=== PATIENT | male | born 1940 | race Caucasian/White ===

== ENCOUNTER → 2017-09-02 | Outpatient (CLI) | payer OTHER ==
--- NOTE | 2017-09-02 14:40 | MR ---
MRCP HISTORY: Elevated liver enzymes Multiplanar multisequence imaging obtained through the biliary system. Three-dimensional reconstructi ons were performed. Liver shows signal drop on out of phase imaging suggestive of hepatic steatosis, there is motion on t he exam. Some dependent high attenuation is present within the gallbladder compatible with small stones. Diffi cult to exclude stone within the distal common bile duct, axial image 16 of the T2 weighted data set, although this may be artifactual. The kidneys and adrenal glands are unremarkable, the spleen is enl arged. Pancreas shows no definite mass. IMPRESSION: There may be underlying artifact. There is motion during the exam which limits evaluation , difficult to exclude choledocholithiasis, there is cholelithiasis. Hepatic steatosis, hepatosplenom egaly.
== END | disposition home or self-care (01) ==
LOC: RADMRIMAIN 12:49
PROVIDERS: ATTEND Internal Medicine Gastroenterology
DX: K76.0 Fatty (change of) liver, not elsewhere classified (principal); R16.2 Hepatomegaly with splenomegaly, not elsewhere classified
CPT/HCPCS: 74181

== ENCOUNTER → 2021-01-10 | Outpatient (CLI) | payer OTHER ==
--- NOTE | 2021-01-10 12:07 | CT ---
EXAMINATION TYPE: CT brain wo con DATE OF EXAM: 01/10/2021 COMPARISON: None HISTORY: 80-year-old male Z84.9, Family history of brain tumor, G20 Parkinson's disease, memory loss TECHNIQUE: Examination was done in axial plane without intravenous contrast. Coronal and sagittal r econstructions performed. CT DLP: 1036 mGycm Automated exposure control for dose reduction was used. FINDINGS: There is no evidence of acute intracranial hemorrhage, acute ischemic changes, mass, mass-effect, or extra-axial fluid collection. There is no effacement of cerebral sulci or basal subarachnoid cister ns. There is no midline shift. Manuel-white matter distinction is preserved. Partially empty sella. Mild to moderate cerebral cortical and central cerebral atrophy. Secondary mild prominence to the ve ntricular system. Mild patchy white matter hypodensities in posterior hemispheres. More focal 1 cm hypodensity left tem poral lobe adjacent to the temporal horn of the left lateral ventricle. Trace mucosal thickening ethmoid air cells. Mastoid air cells well pneumatized. Orbits and globes degar ear intact. IMPRESSION: 1. Mild to moderate cortical and central cerebral atrophy. 2. Mild burden of chronic small vessel ischemic disease but with a more focal 1 cm low density focus left temporal lobe. This may also represent a focus of chronic white matter ischemia. MRI without and with contrast recommended to further evaluate. 3. Otherwise, no acute intracranial abnormality seen.
== END | disposition home or self-care (01) ==
LOC: RADCTMAIN 11:16
PROVIDERS: ATTEND Family Medicine
DX: G20 Parkinson's disease (principal); I67.82 Cerebral ischemia; G31.9 Degenerative disease of nervous system, unspecified; Z82.0 Family history of epilepsy and other diseases of the nervous system
CPT/HCPCS: 70450

== ENCOUNTER 2022-01-22 09:06 | Day surgery (SDC) | payer OTHER ==
[2022-01-19 08:31] VITALS: BMI 27.3
[~2022-01-22 09:06] MED LIST: DEXAMETHASONE SOD PHOSPHATE 4 MG/ML 1 ML VIAL IV ONE; GENTAMICIN 120 MG in SODIUM CHLORIDE 0.9% 100 ML IVPB PRN; HYDROmorphone 0.5 MG/0.5 ML SYRINGE IVP PRN; LACTATED RINGERS 1,000 ML IV SCH; MIDAZOLAM 2 MG/2 ML VIAL IV PRN; ONDANSETRON 4 MG/2 ML VIAL IVP ONE
--- NOTE | 2022-01-22 09:31 | P.HPIHPCON ---
History of Present Illness H&P Date: 01/22/22 Chief Complaint: Urinary retention, BPH This is an 81-year-old male with history of urinary retention currently Eden catheter dependent. He has failed his trial of void. He underwent a cystoscopy with urodynamic which showed normal bladder tone, and on cystoscopy evidence of an obstructive prostate. Option of TURP, eden catheter and CIC was discussed with him. He agreed to proceed with a TURP. Discussed the risk which includes but not limited to bleeding, infection, urinary incontinence, strictures, persistent retention. I discussed also with him risk from anesthesia. He understood all the risk and agreed to proceed Consent for Procedure: I have explained the operation/procedure to the patient, including the risks, benefits, side effects, alternative therapies (including not receiving the proposed treatment or service), the likelihood of the patient achieving his/her goals, and potential recuperation problems for the procedure/sedation/analgesia, as well as any blood products, if indicated. I also explained to the patient the risks, benefits and side effects of the alternatives, as well as the risks related to not receiving the proposed procedure, care, treatment, or services. Past Medical History Past Medical History: Cancer, Diabetes Mellitus, GERD/Reflux, Hyperlipidemia, Hypertension, Myocardial Infarction ([place]), Osteoarthritis (OA), Prostate Disorder, Renal Disease, Thyroid Disorder Additional Past Medical History / Comment(s): HX OF POLYP, diverticulitis, hx gout, skin cancer left ear, parkinsons, left leg pain-dr told from sciatica Last Myocardial Infarction Date:: 2004 History of Any Multi-Drug Resistant Organisms: None Reported Past Surgical History: Cholecystectomy, Heart Catheterization With Stent, Hernia Repair, Orthopedic Surgery, Tonsillectomy Additional Past Surgical History / Comment(s): ARTHROSCOPY ADILENE KNEES, one c ardiac stent Past Anesthesia/Blood Transfusion Reactions: No Reported Reaction Date of Last Stent Placement:: 2004 Smoking Status: Never smoker - Past Family History Brother(s) Family Medical History: Cancer Sister(s) Family Medical History: Cancer Medications and Allergies Home Medications Medication Instructions Recorded Confirmed Type Aspirin 81 mg PO DAILY 01/07/14 01/19/22 History HYDROcodone/APAP 7.5-325MG [[place] 1 tab PO Q6HR PRN 01/07/14 01/19/22 History 7.5-325] Metoprolol Tartrate [Lopressor] 50 mg PO QAM 01/07/14 01/19/22 History Rosuvastatin Calcium [Crestor] 5 mg PO QAM 01/07/14 01/19/22 History Tamsulosin [Flomax] 0.4 mg PO QAM 01/07/14 01/19/22 History Carbidopa/Levodopa 1 tab PO TID 01/19/22 01/19/22 History [Carbidopa-Levodopa 25-100 Tab] Ergocalciferol [Vitamin D2 (1250 1,250 mcg PO WE 01/19/22 01/19/22 History Mcg = 90512 Iu)] Fenofibrate Nanocrystallized 145 mg PO QAM 01/19/22 01/19/22 History [Fenofibrate] Insulin Degludec [Tresiba 42 units SQ QAM 01/19/22 01/19/22 History Flextouch U-100 Pen] Levothyroxine Sodium [Synthroid] 88 mcg PO DAILY 01/19/22 01/19/22 History Niacin 500 mg PO DAILY 01/19/22 01/19/22 History [place]gate-3 Fatty Acids [[place]-3] 1,000 mg PO BID 01/19/22 01/19/22 History Oxybutynin Chloride 5 mg PO HS 01/19/22 01/19/22 History Pregabalin [Lyrica] 100 mg PO BID 01/19/22 01/19/22 History Pyridoxine HCl (Vitamin B6) 100 mg PO DAILY 01/19/22 01/19/22 History [Vitamin B-6] Turmeric Root Extract [Turmeric] 500 mg PO DAILY 01/19/22 01/19/22 History Valsartan [Diovan] 80 mg PO DAILY 01/19/22 01/19/22 History predniSONE 10 mg PO DAILY 01/19/22 01/19/22 History Allergies Allergy/AdvReac Type Severity Reaction Status Date / Time No Known Allergies Allergy Verified 01/22/22 09:21 Surgical - Exam - General no distress, no pain - Eyes normal ocular movement, no pale - ENT normal nares, normal mucosa - Respiratory normal expansion, normal respiratory effort - Abdomen Abdomen: soft, non tender - Psychiatric oriented to time, oriented to person, oriented to place Assessment and Plan Assessment: OR for a TURP
[2022-01-22 09:46] LABS: Glucose,Whole Blood 187 mg/dL (70-110)
[2022-01-22] MEDS ORDERED: ONDANSETRON 4 MG/2 ML VIAL ONE (09:58)
[2022-01-22] MEDS ORDERED: LACTATED RINGERS 1,000 ML IV ONE (10:00)
[2022-01-22 10:15] VITALS: RESP 16; TEMP 97.3
[2022-01-22] MEDS ORDERED: MIDAZOLAM 2 MG/2 ML VIAL ONE (11:28)
[2022-01-22] MEDS ORDERED: PROPOFOL 10 MG/ML 20 ML VIAL IV ONE (11:28)
[2022-01-22] MEDS ORDERED: fentaNYL (PF) 50 MCG/ML 2 ML AMP ONE (11:28)
[2022-01-22] MEDS ORDERED: LIDOCAINE 2% INJ 20 MG/ML (2 ML VIAL) ONE (11:28)
[2022-01-22] MEDS ORDERED: SUCCINYLCHOLINE CHLORIDE 200 MG/10 ML VIAL IV ONE (11:28)
[2022-01-22] MEDS ORDERED: ROCURONIUM 10 MG/ML (5 ML VIAL) IV ONE (11:28)
--- NOTE | 2022-01-22 13:36 | P.OP ---
Date of Procedure: 01/22/22 Preoperative Diagnosis: BPH, urinary retention Postoperative Diagnosis: Same Procedure(s) Performed: Cystoscopy, TURP (bipolar) Implants: None Anesthesia: BRENDANA Surgeon: David Mae Estimated Blood Loss (ml): 100 Pathology: other (prostate adenoma) Condition: stable Disposition: PACU Indications for Procedure: This is an 81-year-old male with history of urinary retention currently Eden catheter dependent. He has failed his trial of void. He underwent a cystoscopy with urodynamic which showed normal bladder tone, and on cystoscopy evidence of an obstructive prostate. Option of TURP, eden catheter and CIC was discussed with him. He agreed to proceed with a TURP. Discussed the risk which includes but not limited to bleeding, infection, urinary incontinence, strictures, persistent retention. I discussed also with him risk from anesthesia. He understood all the risk and agreed to proceed Operative Findings: Bilateral obstructive lateral lobes, with small median lobe Description of Procedure: Patient brought to the operating room, general anesthesia was induced. He was prepped and draped in sterile fashion and placed in dorsal lithotomy position. Resectoscope fitted with a 25-Kyrgyz sheath was inserted per urethra, cystoscopy was performed which showed no abnormality within the bladder, of note patient had a moderately trabeculated bladder, with significant enlargement of the bilateral lateral lobes. The lateral lobes were completely occlusive, patient also had a small median lobe. Using the bipolar loop, the prostate was resected down to the surgical capsule. Resection was carried distal to the bladder neck, ensuring staying proximal to the Veru. Hemostasis was achieved using cautery. All prostate tissue was irrigated out of the bladder using the Ellick evacuator. Repeat cystoscopy showed a wide-open prostatic fossa, there was no injury to the ureteral orifices or to the external spinster. At this time the resectoscope was withdrawn and a 22-Kyr[place]z Eden was placed with return of clear urine. The Eden was irrigated without any difficulty. Patient tolerated the procedure well was taken to recovery in stable condition
[2022-01-22] MEDS: HYDROmorphone 0.5 MG/0.5 ML SYRINGE IVP ONE ×2 (13:56→14:02)
[2022-01-22] MEDS ORDERED: HYDROmorphone 0.5 MG/0.5 ML SYRINGE IVP ONE (14:18)
[2022-01-22] MEDS ORDERED: ONDANSETRON 4 MG/2 ML VIAL IVP ONE (14:22)
[2022-01-22 15:42] VITALS: BP 139/75; PULSE 71
== END 2022-01-22 16:21 | disposition home or self-care (01) ==
LOC: OR 09:06
PROVIDERS: ATTEND Urology
DX: N40.1 Benign prostatic hyperplasia with lower urinary tract symptoms (principal); R33.8 Other retention of urine; E11.9 Type 2 diabetes mellitus without complications; K21.9 Gastro-esophageal reflux disease without esophagitis; E78.5 Hyperlipidemia, unspecified; I10 Essential (primary) hypertension; I25.2 Old myocardial infarction; M19.90 Unspecified osteoarthritis, unspecified site; E07.9 Disorder of thyroid, unspecified; Z90.49 Acquired absence of other specified parts of digestive tract; Z90.89 Acquired absence of other organs; Z98.890 Other specified postprocedural states; Z95.5 Presence of coronary angioplasty implant and graft; Z79.82 Long term (current) use of aspirin; Z79.899 Other long term (current) drug therapy; Z79.890 Hormone replacement therapy; Z79.4 Long term (current) use of insulin
CPT/HCPCS: 84132; 52601; J0690; J2405; J1580; J1170; 88305